=== PATIENT | female | born 2000 ===

== ENCOUNTER 2022-04-03 15:11 | Outpatient (CLI) | payer OTHER | END 2022-04-03 16:14 | disposition home or self-care (01) | LOC: PRENATAL 15:11 | PROVIDERS: ATTEND Obstetrics & Gynecology Maternal & Fetal Medicine | DX: O35.9XX0 Maternal care for (suspected) fetal abnormality and damage, unspecified, not applicable or unspecified (principal); O35.3XX0 Maternal care for (suspected) damage to fetus from viral disease in mother, not applicable or unspecified; Z3A.20 20 weeks gestation of pregnancy ==

== ENCOUNTER 2022-04-28 21:00 | Outpatient (CLI) | payer OTHER ==
[2022-04-28] MEDS ORDERED: PRENATABS RX T1 EACH PO (21:01)
[2022-04-28] MEDS ORDERED: FOLIC ACID0.8 M1 PO (21:02)
== END 2022-04-29 09:54 | disposition home or self-care (01) ==
LOC: OBS/DEL 21:00
PROVIDERS: ATTEND Obstetrics & Gynecology
DX: O26.892 Other specified pregnancy related conditions, second trimester (principal); Z3A.23 23 weeks gestation of pregnancy; R10.2 Pelvic and perineal pain

== ENCOUNTER 2022-07-23 17:36 | Inpatient (IN) | payer OTHER ==
[~2022-07-23] VITALS: Ht 160 cm; Wt 68.9 kg
[~2022-07-23 17:36] MED LIST: FOLIC ACID0.8 M1 PO; PRENATABS RX T1 EACH PO
== END 2022-07-26 09:54 | disposition home or self-care (01) | DRG 833 ==
LOC: OBS/DEL 17:36 → LDR 07-24 08:44 → OB/GYN 07-25 09:09
PROVIDERS: ADMIT Obstetrics & Gynecology; ATTEND Obstetrics & Gynecology
PROC: 4A1HXCZ Monitoring of Products of Conception, Cardiac Rate, External Approach (ICD-10-PCS; principal; 2022-07-24)
DX: O60.03 Preterm labor without delivery, third trimester (principal); Z3A.36 36 weeks gestation of pregnancy; Z20.822 Contact with and (suspected) exposure to COVID-19